=== PATIENT | female | born 1980 | race Asian ===

== ENCOUNTER → 2016-09-04 | Outpatient (CLI) | payer OTHER | LOC: BMCIMAGING 09:21 | PROVIDERS: ATTEND Emergency Medicine | DX: R50.9 Fever, unspecified (principal); R05 Cough; R53.83 Other fatigue ==

== ENCOUNTER → 2017-05-13 | Outpatient (CLI) | payer OTHER | LOC: FIMAGING 12:58 | PROVIDERS: ATTEND Advanced Practice Midwife | DX: D25.2 Subserosal leiomyoma of uterus (principal); N94.6 Dysmenorrhea, unspecified ==

== ENCOUNTER 2017-08-09 12:13 | Emergency (ER) | payer OTHER ==
--- NOTE | 2017-08-09 13:16 | CPEKG ---
Heart Rate: 63 RR Interval: 952 P-R Interval: 140 QRSD Interval: 82 QT Interval: 424 QTC Interval: 435 P [place]: 40 QRS [place]: 26 T Wave [place]: 24 EKG Severity - NORMAL ECG - EKG Impression: SINUS RHYTHM Electronically Signed By: Franchesca Chacon 09-Aug-2017 22:11:37
[2017-08-09 13:31] LABS: PLATELET COUNT 288 10^3/uL (150-400)
[2017-08-09] MEDS ORDERED: NS 1,000 ML IV ONE ×2 (13:32→14:55)
--- NOTE | 2017-08-09 13:33 | EDPHY ---
HPI/HX/ROS/PE/MDM Narrative: CHIEF COMPLAINT: Shortness of breath, chest discomfort, belching HISTORY OF PRESENT ILLNESS: The patient is a 36 y/o female with a history of Lyme Disease complaining of shortness of breath, and chest discomfort for 2 weeks with abdominal upset, belching, near syncope, and diarrhea beginning this afternoon. For the past 2 weeks she has felt short of breath, primarily when exerting herself. She also complains of being weak, primarily in the legs, and tired. She initially thought this weakness and shortness of breath was a Lyme Disease exacerbation. Denies loss of consciousness, face or arm weakness, recent travel, history of DVT or PE. Today while at work she developed intermittent chest tightness and several minutes later she began to feel faint and like she was going to lose consciousness, which lasted for 3 minutes. Denies history of CAD, MA, or cardiac stents. Shortly after her near syncopal episode, she began to have belching and diarrhea. Denies history of heart burn, GERD, recent stress. Denies liver or gallbladder disease. Due to this chest tightness and shortness of breath she decided to present to the emergency room. Since arriving in the ED , she has continued to have multiple bouts of loose stools as well as abdominal tenderness and bloating. No blood in the diarrhea. No vomiting. No fever, chills, palpitations, urinary complaints, headache, lightheadedness. REVIEW OF SYSTEMS: Aside from elements discussed in the HPI, a comprehensive 10-point review of systems was reviewed and is negative. PAST MEDICAL HISTORY: Lyme disease, ovarian cysts, tonsillectomy SOCIAL HISTORY: Friend at bedside, , lives in [place], employed, uses CBD oil but denies tobacco, alcohol, or illicit drug use VITAL SIGNS: Reviewed by me. No fever. No hypoxia. GENERAL: Belching, well-developed, well-nourished, resting comfortably in no respiratory distress. Frequent belching. HEENT: Atraumatic. Eyes: No icterus, no injection. Mouth: moist mucous membranes. No erythema or lesions. Neck: supple with no adenopathy. LUNGS: Clear to auscultation bilaterally, no wheezes, rhonchi or rales. CARDIAC: Regular rate and rhythm, no rubs, murmurs or gallops. ABDOMEN: Soft, mild diffusely tender abdomen, slightly distended distended, bowel sounds normal. BACK: No CVA tenderness. EXTREMITIES: No trauma. No edema. Range of motion is normal throughout. NEURO: Alert and oriented, grossly nonfocal. SKIN: Warm and dry, no rash. PSYCHIATRIC: Normal mentation, no agitation. Portions of this note were transcribed by a medical billing coordinator. I personally performed a history, physical exam, medical decision making, and confirmed accuracy of information the transcribed note. ED Course: The patient is a 36 y/o female with a history of Lyme Disease presenting with shortness of breath for two weeks and chest discomfort associated with belching and diarrhea today. On exam she is consistently belching and has a distended and diffusely tender abdomen. Labs, chest x-ray, and EKG ordered. 1L IV NS and GI cocktail administered. 1314: 12-LEAD EKG: Please see the full report in [facility]. My interpretation: Normal sinus rhythm with a rate of 63, no changes from prior EKG on 09/17/13. 1401: I reviewed patient's chest x-ray which is negative for acute findings. 1453: Reassessed patient, her belching has improved after medication. However, she is still feeling lightheaded while lying down and has chest tightness. Orthostatic vitals and additional 1L IV NS ordered. 1610: Reassessed patient and discussed imaging and laboratory findings. Patient has normal labs, negative troponin, normal chest x-ray, negative D- dimer. She has had several watery diarrheal stools while in the emergency department. No blood. No fever. She is still feeling breathless, weak, and her belching has returned. We discussed admission to hospital. We discussed further evaluation for shortness of breath which she is particularly concerned about as well as further evaluation of the diarrhea and belching. Patient will be re-evaluated after CT scans. 1750: Spoke with Dr. Rachel, radiologist. Chest CT has no acute findings, specifically no pulmonary embolism. Abdominal CT demonstrates mildly diffuse edema in the colon, consistent with colitis. 1812: Reassessed patient and discussed imaging findings. No acute abnormalities or diagnosis fall for the patient's shortness of breath. I suspect her diarrhea is infectious in nature. We are awaiting the GI pathogen panel. I have advised her to follow up with her Lyme disease specialist regarding her shortness of breath. 1819: Patient's GI panel reveals C. diff; I have prescribed her oral Vancomycin. She was also given a prescription of oral Flagyl to fill if unable to find oral vancomycin. Her first dose of Vancomycin will be given in the ED. She has a normal WBC and kidney function., and overall looks quite well. I believe she is safe to be discharged as a mild case of Clostridium difficile. She understands reasons to return to the emergency department and also would prefer to be discharged home. MDM: Differential diagnosis for the patient's diarrhea was considered including but not limited to gastroenteritis, colitis, diverticulitis, bacterial dysentery, viral diarrhea, medication effect, and malabsorption syndrome. Differential diagnosis for the patient's shortness of breath was considered including but not limited to pulmonary infectious processes, COPD exacerbation, pulmonary emboli, pulmonary edema, congestive heart failure, and cardiac causes. - Data Points Imaging Results: CT Angio chest Impression: 1. No visible pulmonary embolus. 2. Additional findings as above. Findings discussed with Franchesca Chacon MD, on 08/09/2017 at 17:49. Dictated By: Abel Rachel MD CT Abd Pelvis Impression: 1. Mild apparent wall thickening of the descending colon, which could be related to colitis or underdistention, with moderate stool in the distal colon. 2. Mild prominence of small bowel, upper normal in caliber, without definite evidence of obstruction. 3. 8 mm peripherally enhancing structure in the right hepatic lobe possibly related to hemangioma, but incompletely characterized on this single phase study. MR abdomen with contrast could be performed for further evaluation. 4. Additional findings as above. Findings discussed with Franchesca Chacon MD 08/09/2017 at 17:49. CXR: Impression: Stable negative chest. Dictated By: Rolando Alejandra MD Imaging: Discussed imaging studies w/ order caller Radiologist, I viewed and interpreted images myself Laboratory Results: Laboratory Results 08/09/17 13:18 08/09/17 13:18 Medications Given: Discontinued Medications Al Hydroxide/Mg Hydroxide (Maalox Susp) 30 ml PO ONCE ONE Stop: 08/09/17 14:03 Last Admin: 08/09/17 14:13 Dose: 30 ml Hyoscyamine Sulfate (Levsin, Hyomax-Sl) 0.25 mg PO ONCE ONE Stop: 08/09/17 14:03 Last Admin: 08/09/17 14:13 Dose: 0.25 mg Sodium Chloride (Ns) 1,000 mls @ 0 mls/hr IV ONCE ONE; Wide Open PRN Reason: Protocol Stop: 08/09/17 13:33 Last Admin: 08/09/17 14:07 Dose: 1,000 mls Sodium Chloride (Ns) 1,000 mls @ 0 mls/hr IV ONCE ONE; Wide Open PRN Reason: Protocol Stop: 08/09/17 14:56 Last Admin: 08/09/17 15:20 Dose: 1,000 mls Lidocaine (Lidocaine 2% Viscous) 15 ml PO ONCE ONE Stop: 08/09/17 14:03 Last Admin: 08/09/17 14:13 Dose: 15 ml Loperamide HCl ( Imodium) 4 mg PO EDNOW ONE Stop: 08/09/17 18:02 Last Admin: 08/09/17 18:10 Dose: 4 mg Pantoprazole Sodium (Protonix) 40 mg IVP EDNOW ONE Stop: 08/09/17 14:02 Last Admin: 08/09/17 14:16 Dose: 40 mg Vancomycin HCl (Vancocin Oral Liquid) 125 mg PO EDNOW ONE PRN Reason: Protocol Stop: 08/09/17 18:24 Last Admin: 08/09/17 18:59 Dose: 125 mg General Time Seen by Provider: 08/09/17 13:31 Initial Vital Signs: Initial Vital Signs Temperature (C) 36.5 C 08/09/17 12:19 Heart Rate 79 08/09/17 12:19 Respiratory Rate 16 08/09/17 12:19 Blood Pressure 112/79 08/09/17 12:19 O2 Sat (%) 99 08/09/17 12:19 O2 Delivery Mode Room Air Allergies/Adverse Reactions: No Known Allergies Allergy (Unverified 09/17/13 20:11) Home Medications: Medication Instructions Recorded Vancomycin [Vancomycin (*)] 125 mg PO Q6 10 Days cap 08/09/17 metroNIDAZOLE [Flagyl 500 mg (*)] 500 mg PO TID 10 Days tab 08/09/17 Departure - Departure Disposition: Home, Routine, Self-Care Clinical Impression: Colitis, Shortness of breath, Diarrhea, C. difficile diarrhea Condition: Good Instructions: Chest Pain (ED), Clostridium Difficile Infection (ED), Acute Diarrhea (ED), Colitis (ED), Shortness of Breath (ED) Additional Instructions: You have Clostridium difficile. Take Vancomycin as prescribed. Take Imodium as needed for diarrhea. Take Flagyl as prescribed if you are unable to obtain Vancomycin. Drink plenty of fluids. Follow up with Dr. Dover. Follow up with your Lyme Disease specialist. Return to the Emergency Department for fever, chest pain, shortness of breath, increasing pain or other worsening of condition. Referrals: EVITA DOVER [Medical Doctor] - As per Instructions Prescriptions: metroNIDAZOLE [Flagyl 500 mg (*)] 500 mg PO TID 10 Days tab Vancomycin [Vancomycin (*)] 125 mg PO Q6 10 Days cap Report Scribed for: Franchesca Chacon Report Scribed by: Abena Chandra Date of Report: 08/09/17 Time of Report: 13:33
[2017-08-09] MEDS ORDERED: PANTOPRAZOLE SODIUM 40 MG VIAL IVP ONE (14:01)
[2017-08-09] MEDS ORDERED: HYOSCYAMINE SULFATE 0.125 MG TAB PO ONE (14:02)
[2017-08-09] MEDS ORDERED: MAG HYDROX/AL HYDROX/SIMETH 30 ML UDCUP PO ONE (14:02)
[2017-08-09] MEDS ORDERED: LIDOCAINE 2% VISCOUS 15 ML UDCUP PO ONE (14:02)
[2017-08-09] MEDS ORDERED: IOPAMIDOL (ISOVUE 370) 100 ML BTL IV ONE (16:41)
[2017-08-09] MEDS ORDERED: LOPERAMIDE HCL 2 MG CAP PO ONE (18:01)
[2017-08-09] MEDS ORDERED: VANCOMYCIN 125 MG/2.5 ML UDL PO ONE (18:23)
[2017-08-09 19:30] VITALS: BP 108/65
== END 2017-08-09 19:31 | disposition home or self-care (01) ==
DX: R06.02 Shortness of breath (principal); A04.72 Enterocolitis due to Clostridium difficile, not specified as recurrent; E86.9 Volume depletion, unspecified
CPT/HCPCS: 96374; Q9967